=== PATIENT | female | born 1950 | race Caucasian/White ===

== ENCOUNTER → 2025-03-22 10:01 | Outpatient (BNVA) | payer OTHER, MEDICARE, MEDICAID, SELFPAY | PROVIDERS: Family Provider Family Medicine; Referring Provider Nurse Practitioner Family; Visit Provider Internal Medicine Rheumatology | DX: M05.79 Rheumatoid arthritis with rheumatoid factor of multiple sites without organ or systems involvement (principal); L40.9 Psoriasis, unspecified; Z79.899 Other long term (current) drug therapy; Z71.85 Encounter for immunization safety counseling; M81.0 Age-related osteoporosis without current pathological fracture; M54.50 Low back pain, unspecified; M51.379 Other intervertebral disc degeneration, lumbosacral region without mention of lumbar back pain or lower extremity pain | CPT/HCPCS: 36415; 72100; 80076; 82306; 82565; 85025; 85651; 86140; 86480; 86704; 86803; 87340; 99204 ==